=== PATIENT | female | born 1945 | race Caucasian/White ===

== ENCOUNTER → 2017-03-10 | Outpatient (CLI) | payer OTHER, MEDICARE ==
[~2017-03-10] MED LIST: ADULT LOW DOSE81 MG PO; CALCIUM 500 +1 EAC5 PO; CENTRUM COMPLE1 EACH PO; CRESTOR10 MG PO; FISHOIL OR; FOSAMAX 10 MG10 MG OR; GARLIC OIL1 EAC1 PO; GLUCOSAMINE &1 EACH PO; HYDROCHLOROTHIA25 M1 PO; LISINOPRIL20 MG PO; MIACALCIN INH; PREVACID15 MG PO; SYNTHROID100 MCG PO; TOPROL XL100 MG PO; VITAMIN B-12100 MC1 PO; VITAMIN D2400 UNIT PO
== END ==
LOC: RAD 00:19
DX: Z12.31 Encounter for screening mammogram for malignant neoplasm of breast (principal)

== ENCOUNTER → 2019-03-15 | Outpatient (CLI) | payer OTHER, MEDICARE | LOC: NUC 09:29 | DX: M85.88 Other specified disorders of bone density and structure, other site (principal) ==

== ENCOUNTER → 2019-03-15 | Outpatient (CLI) | payer OTHER, MEDICARE | LOC: NUC 01:06 → RAD 10:16 → NUC 10:17 | DX: Z12.31 Encounter for screening mammogram for malignant neoplasm of breast (principal) ==

== ENCOUNTER → 2019-03-17 | Outpatient (CLI) | payer OTHER, MEDICARE | LOC: ULTRA 08:19 → RAD 08:19 | DX: N60.01 Solitary cyst of right breast (principal); R92.2 Inconclusive mammogram ==

== ENCOUNTER → 2019-09-19 | Outpatient (CLI) | payer OTHER, MEDICARE | LOC: RAD 09:46 | DX: N83.201 Unspecified ovarian cyst, right side (principal) ==

== ENCOUNTER → 2020-04-05 | Outpatient (CLI) | payer OTHER, MEDICARE | LOC: RAD 08:06 | PROVIDERS: ATTEND Neuromusculoskeletal Medicine & OMM | DX: Z12.31 Encounter for screening mammogram for malignant neoplasm of breast (principal); M81.0 Age-related osteoporosis without current pathological fracture ==

== ENCOUNTER → 2021-04-09 | Outpatient (CLI) | payer OTHER, MEDICARE | LOC: BC 10:14 | PROVIDERS: ATTEND Neuromusculoskeletal Medicine & OMM | DX: Z12.31 Encounter for screening mammogram for malignant neoplasm of breast (principal); N64.89 Other specified disorders of breast ==